=== PATIENT | female | born 1965 | race Caucasian/White ===

== ENCOUNTER → 2017-01-07 | Outpatient (CLI) | payer OTHER | LOC: BMCIMAGING 08:45 | DX: Z12.31 Encounter for screening mammogram for malignant neoplasm of breast (principal); Z80.3 Family history of malignant neoplasm of breast | CPT/HCPCS: G0202 ==

== ENCOUNTER → 2017-10-14 | Outpatient (CLI) | payer OTHER | LOC: BMCIMAGING 12:40 | PROVIDERS: ATTEND Family Medicine | DX: R05 Cough (principal) ==

== ENCOUNTER → 2018-10-26 | Outpatient (CLI) | payer OTHER | LOC: BMCIMAGING 09:10 | PROVIDERS: ATTEND Family Medicine | DX: M54.12 Radiculopathy, cervical region (principal) ==